=== PATIENT | male | born 1965 | race African-American/Black ===

== ENCOUNTER 2023-10-23 10:13 | Inpatient (IN) | payer MEDICAID, OTHER, SELFPAY ==
[2023-10-23 12:11] LABS: #Monocytes 0.5 thou/uL (0.11-0.59); #Neutrophils 2.1 thou/uL (1.40-6.50); %Basophils 0.3 % (0.0-1.0); %Eosinophils 0.7 % (0.0-10.0); %Lymphocytes 53.8 % (21.0-51.0); %Monocytes 9.1 % (0.0-10.0); %Neutrophils 35.9 % (42.0-75.0); Hematocrit 34.4 % (42.0-52.0); Hemoglobin 11.3 g/dL (14.0-18.0); Mean Corpuscular HGB CONC 32.8 g/dL (32.0-36.0); Mean Corpuscular Hemoglobin 29.3 pg (27.0-31.0); Mean Corpuscular Volume 89.1 fl (78.0-98.0); Mean Platelet Volume 9.3 fL (7.4-10.4); Platelet Count 189 10x3/uL (130-400); RBC Distribution Width 13.2 % (11.5-14.5); Red Blood Cell (RBC) Count 3.86 mill/uL (4.70-6.10); White Blood Cell (WBC) Count 5.9 10x3/uL (4.8-10.8)
[2023-10-23] MEDS ORDERED: levETIRAcetam 500 MG (5 mL) VIAL ONE (12:12)
[2023-10-23 12:28] LABS: ALT (SGPT) 15 U/L (8-55); AST (SGOT) 26 U/L (5-34); Albumin 3.9 g/dL (3.5-5.0); Alkaline Phosphatase 66 U/L (40-110); Anion Gap 10 mmol/L (10-20); BUN (Urea Nitrogen) 29 mg/dL (8.4-25.7); Bilirubin, Total 0.6 mg/dL (0.2-1.2); Calc. Creatinine Clearance 0 mL/min (70-130); Calcium 9.4 mg/dL (7.8-10.44); Carbon Dioxide 28 mmol/L (22-29); Chloride 102 mmol/L (98-107); Estimated GFR 50; Globulin 4.5 g/dL (2.4-3.5); Glucose 103 mg/dL (70-105); Potassium 3.6 mmol/L (3.5-5.1); Protein, Total 8.4 g/dL (6.0-8.3); Sodium 136 mmol/L (136-145)
[2023-10-23 12:32] LABS: Troponin I 0.022 ng/mL (< 0.028)
[2023-10-23] MEDS ORDERED: Acetaminophen 650 MG Suppository PR PRN (15:08)
[2023-10-23] MEDS ORDERED: hydrALAZINE 20 MG/ML VIAL SLOW IVP PRN (16:00)
[2023-10-23] MEDS: Sodium Chloride 0.9% 1,000 ML IV SCH (20:42)
[2023-10-23] MEDS: Atorvastatin Calcium 40 MG TAB PO SCH (20:43)
[2023-10-23] MEDS: levETIRAcetam 500 MG TAB PO SCH (20:43)
[2023-10-23] MEDS: Aspirin 325 MG TAB PO SCH (23:43)
[2023-10-24 00:05] VITALS: BMI 33.4
[2023-10-24 05:13] LABS: Hematocrit 30.4 % (42.0-52.0); Manual Diff?? YES; Mean Corpuscular HGB CONC 32.9 g/dL (32.0-36.0); Mean Corpuscular Hemoglobin 29.4 pg (27.0-31.0); Mean Corpuscular Volume 89.4 fl (78.0-98.0); Mean Platelet Volume 9.4 fL (7.4-10.4); Platelet Count 169 10x3/uL (130-400); RBC Distribution Width 13.3 % (11.5-14.5); White Blood Cell (WBC) Count 3.8 10x3/uL (4.8-10.8)
[2023-10-24 05:54] LABS: Anion Gap 10 mmol/L (10-20); BUN (Urea Nitrogen) 29 mg/dL (8.4-25.7); Calc. Creatinine Clearance 86 mL/min (70-130); Carbon Dioxide 25 mmol/L (22-29); Cardiac Risk 2.7 (Less than 4.5); Chloride 106 mmol/L (98-107); Cholesterol 122 mg/dl (< 200 Desired); Estimated GFR 60; Glucose 84 mg/dL (70-105); HDL Cholesterol 45 mg/dL (>60 Neg Risk); LDL Cholesterol, Calculated 69 mg/dL; Potassium 3.8 mmol/L (3.5-5.1); Sodium 137 mmol/L (136-145); Triglycerides 38 mg/dL (Less than 150)
[2023-10-24 06:29] LABS: Delete Auto Diff?? YES
[2023-10-24 07:17] LABS: CellaVision Operator ID LAB.KW3; Eosinophils 1 % (0-10); Lymphocytes 50 % (21-51); Monocytes 6 % (0-10); Neutrophil 43 % (42-75); Platelet Adequacy Comment Platelets Normal; RBC Morphology Within Normal Limits; Total Cell Count 101
[2023-10-24] MEDS: Aspirin 81 mg Enteric Coated Tablet PO SCH (08:34)
[2023-10-24 16:11] LABS: Hep A IgM AB Non-Reactive S/CO (NonReactive); Hep A IgM S/CO 0.12 S/CO (0-0.79); Hep B Surf Ag Non-Reactive S/CO (NonReactive); Hep C IgG Ab Non-Reactive S/CO (NonReactive); Hepatitis B Core IgM Abs Non-Reactive S/CO (NonReactive)
[2023-10-25 01:01] LABS: Chlam.trachomatis by PCR,Urine Not Detected (NotDetected); GC N.gonorrhoeae PCR,UrineVOID Not Detected (NotDetected)
[2023-10-25 05:03] LABS: Hematocrit 30.2 % (42.0-52.0); Hemoglobin 10.1 g/dL (14.0-18.0); Manual Diff?? YES; Mean Corpuscular HGB CONC 33.4 g/dL (32.0-36.0); Mean Corpuscular Hemoglobin 30.1 pg (27.0-31.0); Mean Corpuscular Volume 89.9 fl (78.0-98.0); Mean Platelet Volume 9.7 fL (7.4-10.4); Platelet Count 167 10x3/uL (130-400); RBC Distribution Width 13.2 % (11.5-14.5); Red Blood Cell (RBC) Count 3.36 mill/uL (4.70-6.10); White Blood Cell (WBC) Count 3.8 10x3/uL (4.8-10.8)
[2023-10-25 05:05] LABS: Delete Auto Diff?? YES
[2023-10-25 05:32] LABS: Anion Gap 6 mmol/L (10-20); BUN (Urea Nitrogen) 22 mg/dL (8.4-25.7); Calc. Creatinine Clearance 95 mL/min (70-130); Calcium 8.8 mg/dL (7.8-10.44); Carbon Dioxide 29 mmol/L (22-29); Chloride 104 mmol/L (98-107); Estimated GFR 68; Glucose 80 mg/dL (70-105); Potassium 3.7 mmol/L (3.5-5.1); Sodium 135 mmol/L (136-145)
[2023-10-25 05:36] LABS: Band 8 % (5-11); CellaVision Operator ID LAB.CLH1; Hypochromia SLIGHT = 6-15 cells HPF (0-5); Large Platelets 5.7 % (0-5); Lymphocytes 60 % (21-51); Monocytes 5 % (0-10); Neutrophil 26 % (42-75); Platelet Adequacy Comment Platelets Normal; Total Cell Count 87
[2023-10-25 14:54] LABS: Syphilis Antibody Index 17.77 S/CO (<1.00 Non-Reactive)
[2023-10-25 15:05] LABS: Syphilis Antibody INDETERMINATE (Nonreactive); Syphilis Titer Non-Reactive Titer (Negative)
[2023-10-25 19:12] LABS: %CD4 (Helper/Inducer) 33.7 % (30.8-58.5); Absolute CD4 741 /uL (359-1519); Lymphocytes/Gated Cell Count 2.2 x10E3/uL (0.7-3.1); Total Lymphocyte 59 % (Not Estab.); WBC Total Count 3.8 x10E3/uL (3.4-10.8)
[2023-10-26 04:37] LABS: HSV-2 IgG Type Specific Greater than 23.60 index (0.00-0.90)
[2023-10-26 06:10] LABS: Hematocrit 33.2 % (42.0-52.0); Hemoglobin 11.1 g/dL (14.0-18.0); Manual Diff?? YES; Mean Corpuscular HGB CONC 33.4 g/dL (32.0-36.0); Mean Corpuscular Hemoglobin 29.5 pg (27.0-31.0); Mean Corpuscular Volume 88.3 fl (78.0-98.0); Mean Platelet Volume 9.5 fL (7.4-10.4); Platelet Count 177 10x3/uL (130-400); Red Blood Cell (RBC) Count 3.76 mill/uL (4.70-6.10); White Blood Cell (WBC) Count 4.3 10x3/uL (4.8-10.8)
[2023-10-26 06:13] LABS: Delete Auto Diff?? YES
[2023-10-26 06:37] LABS: CellaVision Operator ID lab.sh2; Eosinophils 1 % (0-10); Large Platelets 5.1 % (0-5); Lymphocytes 63 % (21-51); Monocytes 10 % (0-10); Neutrophil 26 % (42-75); Ovalocytes SLIGHT = 2-5 cells HPF (0-1); Platelet Adequacy Comment Platelets Normal; Polychromasia SLIGHT = 2-3 cells HPF (0-2); Smudge Cells 23.2 %; Total Cell Count 99
[2023-10-26 06:39] LABS: Anion Gap 10 mmol/L (10-20); BUN (Urea Nitrogen) 23 mg/dL (8.4-25.7); Calc. Creatinine Clearance 97 mL/min (70-130); Carbon Dioxide 28 mmol/L (22-29); Chloride 103 mmol/L (98-107); Estimated GFR 70; Glucose 83 mg/dL (70-105); Potassium 3.9 mmol/L (3.5-5.1); Sodium 137 mmol/L (136-145)
[2023-10-26 14:38] LABS: LOG10 HIV-1 RNA 1.699 (.)
[2023-10-27 04:23] LABS: Hematocrit 32.1 % (42.0-52.0); Hemoglobin 10.6 g/dL (14.0-18.0); Manual Diff?? YES; Mean Corpuscular Hemoglobin 29.3 pg (27.0-31.0); Mean Corpuscular Volume 88.7 fl (78.0-98.0); Mean Platelet Volume 9.2 fL (7.4-10.4); Platelet Count 175 10x3/uL (130-400); Red Blood Cell (RBC) Count 3.62 mill/uL (4.70-6.10); White Blood Cell (WBC) Count 4.3 10x3/uL (4.8-10.8)
[2023-10-27 04:26] LABS: Delete Auto Diff?? YES
[2023-10-27 04:49] LABS: Anion Gap 9 mmol/L (10-20); BUN (Urea Nitrogen) 23 mg/dL (8.4-25.7); Calc. Creatinine Clearance 96 mL/min (70-130); Calcium 9.1 mg/dL (7.8-10.44); Carbon Dioxide 26 mmol/L (22-29); Chloride 104 mmol/L (98-107); Estimated GFR 70; Glucose 82 mg/dL (70-105); Potassium 3.9 mmol/L (3.5-5.1); Sodium 135 mmol/L (136-145)
[2023-10-27 05:54] LABS: Band 4 % (5-11); CellaVision Operator ID LAB.CLH1; Eosinophils 1 % (0-10); Hypochromia SLIGHT = 6-15 cells HPF (0-5); Lymphocytes 54 % (21-51); Monocytes 4 % (0-10); Neutrophil 36 % (42-75); Platelet Adequacy Comment Platelets Normal; Total Cell Count 101
[2023-10-27 17:37] LABS: CMV DNA-PCR Test Negative (Negative)
[2023-10-27 18:34] LABS: Bacteria/HPF 4+ HPF (None Seen); Bilirubin Negative (Negative); Blood, Urine Negative (Negative); CAUTI Indications for Culture Pelvic or flank pain; Glucose, Urine (Dipstick) Normal (Negative); Ketone, Urine Negative (Negative); Leukocyte 500 Leu/uL (Negative); Nitrite 1+ (Negative); Protein, Urine (Dipstick) 10 mg/dL (Neg-Trace); RBC/HPF 0-3 HPF (0-3); Specific Gravity, Urine 1.022 (1.002-1.036); Squamous Epithelial None Seen HPF (0-3); Urobilinogen Normal mg/dL (Less than 2); WBC/HPF Greater than 50 HPF (0-3); pH, Urine 6.5 (5.0-9.0)
[2023-10-27 18:38] LABS: Clarity Cloudy (Clear)
[2023-10-27 18:48] LABS: Urine Culture Reflex Yes Yes
[2023-10-28 05:43] LABS: Hematocrit 33.2 % (42.0-52.0); Manual Diff?? YES; Mean Corpuscular HGB CONC 33.1 g/dL (32.0-36.0); Mean Corpuscular Hemoglobin 29.4 pg (27.0-31.0); Mean Corpuscular Volume 88.8 fl (78.0-98.0); Mean Platelet Volume 8.9 fL (7.4-10.4); Platelet Count 176 10x3/uL (130-400); RBC Distribution Width 12.9 % (11.5-14.5); Red Blood Cell (RBC) Count 3.74 mill/uL (4.70-6.10); White Blood Cell (WBC) Count 3.8 10x3/uL (4.8-10.8)
[2023-10-28 06:00] LABS: Delete Auto Diff?? YES
[2023-10-28 06:13] LABS: BUN (Urea Nitrogen) 27 mg/dL (8.4-25.7); Calc. Creatinine Clearance 92 mL/min (70-130); Calcium 9.2 mg/dL (7.8-10.44); Carbon Dioxide 26 mmol/L (22-29); Estimated GFR 66; Glucose 83 mg/dL (70-105); Potassium 3.8 mmol/L (3.5-5.1)
[2023-10-28 06:16] LABS: Chloride 105 mmol/L (98-107); Sodium 137 mmol/L (136-145)
[2023-10-28 06:19] LABS: Anion Gap 10 mmol/L (10-20)
[2023-10-28 06:33] LABS: CellaVision Operator ID lab.sh2; Eosinophils 3 % (0-10); Large Platelets 0.9 % (0-5); Lymphocytes 63 % (21-51); Monocytes 4 % (0-10); Neutrophil 29 % (42-75); Platelet Adequacy Comment Platelets Normal; RBC Morphology Within Normal Limits; Smudge Cells 22.8 %; Total Cell Count 114
[2023-10-28] MEDS: cefTRIAXone\\ROCEPHIN 1 GM in Sodium Chloride 0.9% 100 ML IVPB SCH (13:09)
[2023-10-28] MEDS: FLU VACC QS2023-24(6MOS UP)/PF 60 MCG/0.5 ML SYRINGE IM ONE (19:22)
[2023-10-28] MEDS: Acetaminophen 325 MG TAB PO PRN (20:57)
[2023-10-29 06:41] LABS: #Eosinphils 0.1 thou/uL (0.0-0.7); #Monocytes 0.5 thou/uL (0.11-0.59); #Neutrophils 1.4 thou/uL (1.40-6.50); %Basophils 0.5 % (0.0-1.0); %Eosinophils 1.8 % (0.0-10.0); %Monocytes 10.8 % (0.0-10.0); %Neutrophils 32.7 % (42.0-75.0); Hematocrit 33.1 % (42.0-52.0); Hemoglobin 10.9 g/dL (14.0-18.0); Mean Corpuscular HGB CONC 32.9 g/dL (32.0-36.0); Mean Corpuscular Hemoglobin 29.5 pg (27.0-31.0); Mean Corpuscular Volume 89.5 fl (78.0-98.0); Mean Platelet Volume 9.2 fL (7.4-10.4); Platelet Count 182 10x3/uL (130-400); RBC Distribution Width 12.8 % (11.5-14.5); White Blood Cell (WBC) Count 4.4 10x3/uL (4.8-10.8)
[2023-10-29 06:52] LABS: Anion Gap 10 mmol/L (10-20); BUN (Urea Nitrogen) 29 mg/dL (8.4-25.7); Calc. Creatinine Clearance 97 mL/min (70-130); Carbon Dioxide 27 mmol/L (22-29); Chloride 105 mmol/L (98-107); Estimated GFR 70; Glucose 78 mg/dL (70-105); Sodium 138 mmol/L (136-145)
[2023-10-29 15:55] VITALS: BP 159/80; TEMP 98.8
[2023-10-29 16:15] LABS: QuantiFERON-TB Gold Plus Negative (Negative)
[2023-10-30] MEDS ORDERED: Cephalexin 250 MG CAP PO SCH (06:00)
== END 2023-10-29 18:08 | disposition home health service (06) | DRG 65 ==
LOC: ERS 10:13 → ERHOLD 14:16 → 2SE 19:15 → T4-B 10-28 19:19
PROVIDERS: ADMIT Internal Medicine; ATTEND Family Medicine
PROC: 4A00X4Z Measurement of Central Nervous Electrical Activity, External Approach (ICD-10-PCS; principal; 2023-10-24)
DX: I63.9 Cerebral infarction, unspecified (principal); B20 Human immunodeficiency virus [HIV] disease; N17.9 Acute kidney failure, unspecified; G93.49 Other encephalopathy; G40.909 Epilepsy, unspecified, not intractable, without status epilepticus; D72.819 Decreased white blood cell count, unspecified; F02.80 Dementia in other diseases classified elsewhere, unspecified severity, without behavioral disturbance, psychotic disturbance, mood disturbance, and anxiety; R82.90 Unspecified abnormal findings in urine; Z79.899 Other long term (current) drug therapy
CPT/HCPCS: 36415; 70450; 70551; 71046; 80048; 80053; 80061; 80074; 81001; 84443; 84484; 85025; 86361; 86480; 86593; 86695; 86696; 86780; 87077; 87086; 87186; 87491; 87497; 87536; 87591; 93005; 93306; 95711; 95819; 96365; J0696; J1953; J3490; J7050

== ENCOUNTER 2024-01-04 14:15 | Emergency (ER) | payer OTHER ==
[2024-01-04 15:33] LABS: #Basophils Less than 0.03 10x3/uL (0.0-0.2); %Basophils 0.3 % (0.0-1.0); %Eosinophils 2.3 % (0.0-10.0); %Lymphocytes 48.4 % (21.0-51.0); %Monocytes 8.9 % (0.0-10.0); %Neutrophils 40.1 % (42.0-75.0); Hematocrit 33.8 % (42.0-52.0); Mean Corpuscular HGB CONC 32.5 g/dL (32.0-36.0); Mean Corpuscular Hemoglobin 29.9 pg (27.0-31.0); Mean Corpuscular Volume 91.8 fL (78.0-98.0); Mean Platelet Volume 9.3 fL (7.4-10.4); Platelet Count 179 10x3/uL (130-400); RBC Distribution Width 14.2 % (11.5-14.5); Red Blood Cell (RBC) Count 3.68 mill/uL (4.70-6.10)
[2024-01-04 15:47] LABS: Anion Gap 9 mmol/L (10-20); Globulin 3.8 g/dL (2.4-3.5)
[2024-01-04 15:49] LABS: Acetaminophen Less than 10 mcg/mL (10.0-30.0); Alcohol Less than 10.0 mg/dL (Less than 10); Lipase 45 U/L (8-78); Salicylate Less than 8.0 mg/dL (15.0-30.0)
[2024-01-04 15:52] LABS: ALT (SGPT) 21 U/L (8-55); AST (SGOT) 19 U/L (5-34); Albumin 3.4 g/dL (3.5-5.0); Alkaline Phosphatase 64 U/L (40-110); BUN (Urea Nitrogen) 24 mg/dL (8.4-25.7); Bilirubin, Total 0.3 mg/dL (0.2-1.2); CK (CPK) 95 U/L (30-200); Calc. Creatinine Clearance 0 mL/min (70-130); Calcium 8.5 mg/dL (7.8-10.44); Carbon Dioxide 25 mmol/L (22-29); Chloride 110 mmol/L (98-107); Estimated GFR 68; Glucose 103 mg/dL (70-105); Potassium 4.2 mmol/L (3.5-5.1); Protein, Total 7.2 g/dL (6.0-8.3); Sodium 140 mmol/L (136-145)
[2024-01-04 15:54] LABS: Troponin I 0.018 ng/mL (< 0.028)
== END 2024-01-04 16:32 | disposition home or self-care (01) ==
LOC: ERS 14:15
DX: R53.1 Weakness (principal)
CPT/HCPCS: 36415; 80053; 80307; 82550; 83690; 84484; 85025; 93005